=== PATIENT | female | born 1965 | race Caucasian/White ===

== ENCOUNTER → 2019-07-28 00:01 | Outpatient (BNVA) | payer MEDICAID, SELFPAY | PROVIDERS: Family Provider Nurse Practitioner; PCP Nurse Practitioner; Referring Provider Nurse Practitioner; Visit Provider Nurse Practitioner | DX: E11.65 Type 2 diabetes mellitus with hyperglycemia (principal); I10 Essential (primary) hypertension | CPT/HCPCS: 80053; 82044; 83036 ==

== ENCOUNTER 2019-09-08 15:51 | Emergency (ER) | payer MEDICAID, SELFPAY ==
[2019-09-08 16:03] VITALS: BP 120/80; PULSE 61; RESP 15; TEMP 36.4; O2SAT 98; BMI 35.5
== END 2019-09-08 18:24 | disposition left against medical advice (07) ==
LOC: ER 09-21 13:33
PROVIDERS: Emergency Provider Physician Assistant; Family Provider Nurse Practitioner; PCP Nurse Practitioner
DX: Z53.21 Procedure and treatment not carried out due to patient leaving prior to being seen by health care provider (principal)
CPT/HCPCS: 99281

== ENCOUNTER 2020-01-18 20:02 | Emergency (ER) | payer MEDICAID, SELFPAY ==
--- NOTE | 2020-01-18 20:08 | XR_ITS ---
WS: [id number] PORTABLE CHEST HISTORY: chest pain COMPARISON: 03/22/2019 Lungs are clear and well expanded. No pleural effusion or pneumothorax. Cardiac size: Normal. Mediastinum/Aorta: Normal mediastinum. No osseous abnormality seen. XR/XR chest 1V portable [id number] IMPRESSION: Unremarkable portable chest.
[2020-01-18 20:09] VITALS: BP 207/79; PULSE 67; RESP 18; TEMP 36.7; O2SAT 97; BMI 32.8
--- NOTE | 2020-01-18 20:09 | ECG_ITS ---
[facility] ED Test Date: 2020-01-18 Pat Name: Jing Nelson Department: Room: Gender: Female [employer] Administrator: : 1965 Requested By: Mervat Flynn Order Number: [id number] Longoria MD: Frances Bennett M.D. Measurements Intervals [place] Rate: 66 P: 12 WI: 162 QRS: 20 QRSD: 90 T: 31 QT: 377 QTc: 396 Interpretive Statements SINUS RHYTHM Compared to ECG 03/22/2019 14:39:36 No significant changes Electronically Signed On 01-20-2020 17:13:33 CDT by Frances Bennett M.D. [id number] f
[2020-01-18 20:39] VITALS: BP 138/74; PULSE 66; RESP 18; O2SAT 96
--- NOTE | 2020-01-18 20:42 | ED_ITS ---
HPI - Chest Pain General: Chief Complaint: Chest Pain Stated Complaint: CP Time Seen by Provider: 01/18/20 20:08 Source: patient and family Mode of arrival: ambulatory Limitations: no limitations History of Present Illness: HPI narrative: Jing is a very nice 54-year-old female who comes in stating she is having chest pain. She immediately relates that she is under a great deal of anxiety and stress and believes that her symptoms are likely just a panic attack. She describes the pain as sharp in nature in the center of her chest that goes into her left arm. She denies any other associated symptoms such as shortness of breath, diaphoresis, nausea vomiting, lightheadedness or dizziness, syncope or near syncope, exertional worsening of her pain or any other associated symptoms. She is uncertain whether she has had similar symptoms in the past and states that as she knows that there is no known heart problems for her. Associated symptoms: Deny abdominal pain, diaphoresis, dyspnea, fever(s), nausea, palpitations, syncope or vomiting Review of Systems Const: Denies: fever(s), chills, body aches, fatigue, malaise or diaphoresis Eyes: Denies: change in vision, blurry vision, blind spots, photophobia, eye discharge or eye redness ENMT: Denies: throat pain, odynophagia, hoarseness, swelling of lips/tongue, oral sores, ear or mastoid pain, ear discharge, change in hearing or nasal discharge Card: Denies: palpitations, irregular heart rhythm, edema, lightheadedness, syncope, pre-syncope, dyspnea on exertion or orthopnea Resp: Denies: dyspnea, productive cough, non-productive cough, wheezing, hemoptysis or chest congestion GI: Denies: abdominal pain, nausea, vomiting, hematemesis, coffee ground emesis, heartburn, diarrhea, constipation, GI cramping, hematochezia or melena : Denies: flank pain, dysuria, urinary frequency, urinary urgency or hematuria Musc: Denies: neck pain, back pain, extremity pain, extremity swelling, joint pain, joint swelling, joint redness, joint warmth or joint stiffness Skin/Breast: Denies: rash, pruritus, erythema, skin tenderness or jaundice Neuro: Denies: headache(s), numbness in extremities, weakness in extremities, sensory changes, lack of coordination, difficulty walking, dizziness, vertigo, confusion, Slurred speech present or seizure-like activity Jae/Lymph: Denies: easy bruising, easy bleeding, petechiae, purpura or enlarged lymph nodes All/Imm: Denies: urticaria, throat swelling, tongue swelling, facial swelling or acute wheezing PFSH ED PFSH: Medical History Anxiety Chronic back pain Depressed Diabetes Hypertension Surgical History History of cholecystectomy History of hysterectomy Family History Father Randilacy Deanig disease Other CAD (coronary artery disease) Cancer Diabetes Social History Smoking and tobacco status: never smoked Alcohol intake: never History of recent travel: No Physical Exam Const: COMMON NORMALS: no acute distress, patient oriented x3, no limitations, healthy appearing and well nourished GENERAL APPEARANCE: cooperative, well kempt and well developed HENMT: COMMON NORMALS: normocephalic, atraumatic, external ears normal, EAC's normal and Normal external nose present HEAD & SCALP: normal to inspection, normocephalic and atraumatic FACE & SINUS: normal facial exam and face symmetric NOSE: Normal external nose present and Normal nares present EXTERNAL EAR: Yes external ears normal EXTERNAL AUDITORY CANAL: EAC's normal MOUTH: Normal oral and palatal mucosa present, lip normal and tongue normal Eye: COMMON NORMALS: Equal, round and reactive pupils present and conjunctivae normal GENERAL EYE: appearance normal, both eyes and all related structures ALIGNMENT: Yes alignment normal PERIORBITAL: periorbital findings normal EYELID: eyelids normal CONJUNCTIVA: Yes conjunctivae normal SCLERA: sclerae normal PUPIL: Yes Equal, round and reactive pupils present Neck/C-Spine: COMMON NORMALS: full ROM, no lymphadenopathy, supple, no meningeal signs and no JVD GENERAL: Yes normal visual inspection and Yes trachea midline Chest: COMMONS NORMALS: normal inspection of the chest and normal palpation of entire chest wall Resp: COMMON NORMALS: normal respiratory effort, No retractions and No use of accessory muscles EFFORT & INSPECTION: Yes able to speak in complete sentences and Yes symmetric chest movement AUSCULTATION: no crackles, no rales, no rhonchi and no wheezes Cardio: COMMON NORMALS: no JVD, regular rate, regular rhythm, S1 normal heart sound present and S2 normal heart sound present RATE: regular rate RHYTHM: regular rhythm HEART SOUNDS: S1 normal heart sound present, S2 normal heart sound present, no click, no gallops, no murmurs, no rubs and abnormal split S2 GI: COMMON NORMALS: Soft to palpation and No hepatosplenomegaly present PALPATION: Yes Soft to palpation, No Tenderness to palpation present (GI), No Guarding due to palpation present (GI), No Rigid due to palpation, Yes No hepatosplenomegaly present, No Hernia present, No Palpable mass present and No Pulsatile mass present : COMMON NORMALS: Yes no CVA tenderness BLADDER/KIDNEY EXAM: Yes no CVA tenderness EXTERNAL FEMALE EXAM: No Hernia present Back/Pelvis: COMMON NORMALS: no CVA tenderness, thoracic and lumbar spine normal to inspection, no thoracic nor lumbar tenderness and thoraco-lumbar ROM normal Extremity: COMMON NORMALS: normal to inspection, full ROM, capillary refill normal, no joint enlargement, no clubbing, cyanosis or edema and no calf tenderness Neuro: COMMON NORMALS: patient oriented x3, CN's II-XII intact bilaterally, moves all extremities, no focal motor deficits and no sensory deficits noted MENINGEAL SIGNS: Yes no meningeal signs SPEECH: speech normal Psych: COMMON NORMALS: mental status grossly normal, Normal thought process present, cooperative, normal affect, speech normal and activity/motor behavior normal APPEARANCE: Yes well kempt SPEECH: Yes normal speech THOUGHT PROCESS: Normal thought process present Skin: COMMON NORMALS: no rashes or lesions noted, turgor normal, no jaundice, no petechiae and no mottling GENERAL SKIN EXAM: no rashes or lesions noted and turgor normal Course ED course: 2044 -patient is declining an IV at this time. She is informed the nurse and myself that she believes this is just panic attack and would like something for anxiety. After some convincing she does agree to continue with the ongoing work-up. Vital Signs: Vital signs: Vital Signs Temperature 98.1 F 01/18/20 20:09 Pulse Rate 80 01/18/20 21:00 Respiratory Rate 18 01/18/20 21:00 Blood Pressure 155/70 01/18/20 21:00 Pulse Oximetry 99 01/18/20 21:28 MDM - Chest Pain MDM Narrative: Medical decision making narrative: Arrival -Jing is a nice 54-year-old female comes in complaining of sharp chest pain that lasts just a few minutes. She has no other associated symptoms. She believes her symptoms a re related to stress. Patient's heart score is a 3. I will go ahead and proceed with the work-up and look for any sign of heart or aorta problems. Patient would be a negative PERC rule if it was not for her age. I see no sign or symptom of PE at this time. Patient does not describe her pain as ripping or tearing and I do not suspect aortic dissection. Discharge -the patient has not had any further pain here. She again thinks that this is just anxiety. Her EKG is unchanged, her heart score is 3. I have recommended she stay for at least 1 more troponin EKG but she refuses. She wants to go home at this time. She believes her symptoms are all related to her stress and anxiety. I have informed her that without at least another troponin and EKG I cannot tell her that her risk is low but despite this she refuses to stay and wants to be discharged. The patient did have a heart cath although this was 6 years ago. I think it is unlikely that she is developed significant coronary artery disease in this time but despite this I have still recommended she stay but she refuses. Patient clearly has the capacity to make this decision so I will allow her to be discharged per her request. She is been warned that she is also been repeatedly welcome to return should she change her mind. Medical Records: Attestation: I reviewed the patient's medical records. Medical records narrative: Cardiac catheterization from June 2013 revealed completely normal coronary arteries. Lab Data: Labs: Lab Results 01/18/20 01/18/20 01/18/20 Range/Units 20:27 20:27 20:27 WBC 6.0 (4.0-10.0) 10^3/ uL RBC 5.17 (4.1-5.3) 10^6/u L Hgb 14.9 (11.5-15.3) g/dL Hct 45.0 (37.0-47.0) % MCV 87.0 (81-99) fL MCH 28.8 (28.0-34.0) pg MCHC 33.1 (30.0-36.0) g/dL RDW 12.2 (12.1-15.1) % Plt Count 183 (130-400) 10^3/c mm MPV 11.1 H (7.4-10.4) fL Neut % (Auto) 56.8 % Lymph % (Auto) 35.4 % [place] % (Auto) 4.8 % Eos % (Auto) 2.0 % Baso % (Auto) 0.7 % Neut # (Auto) 3.4 (1.8-7.7) 10^3/u L Lymph # (Auto) 2.1 (0.8-4.8) 10^3/u L [place] # (Auto) 0.3 (0.2-0.9) 10^3/u L Eos # (Auto) 0.1 (0.0-0.8) 10^3/u L Baso # (Auto) 0.0 (0.0-0.1) 10^3/u L Nucleated RBC % (a uto) 0 % Nucleated RBCs # 0.0 /100WBC PT 13.30 (10.5-13.3) SECO NDS INR 0.98 (0.8-1.2) Sodium 133 L (136-145) mmol/L Potassium 4.1 (3.5-5.1) mmol/L Chloride 95 L (98-107) mmol/L Carbon Dioxide 27 (22-29) mmol/L Anion Gap 15.1 (5-19) BUN 12 (6-20) mg/dL Creatinine 0.7 (0.5-0.9) mg/dL GFR Calculation 87.2 L (90-130) mL/min Glucose 441 H (65-115) mg/dL Calculated Osmolal ity 291 (285-295) mOsm/k g Calcium 9.6 (8.5-10.5) mg/dL Magnesium 1.9 (1.7-2.3) mg/dL Total Bilirubin 0.3 (0.15-1.2) mg/dL AST 17 (0-32) U/L ALT 15 (0-33) U/L Alkaline Phosphata se 114 H (35-105) IU/L Troponin T Baselin e (0-10) ng/L Total Protein 7.0 (6.6-8.7) g/dL Albumin 3.9 (3.5-5.2) g/dL Globulin 3.1 (1.3-4.6) g/dL Lipase 52 (13-60) U/L /01/30 Range/Units 20:27 WBC (4.0-10.0) 10^3/ uL RBC (4.1-5.3) 10^6/u L Hgb (11.5-15.3) g/dL Hct (37.0-47.0) % MCV (81-99) fL MCH (28.0-34.0) pg MCHC (30.0-36.0) g/dL RDW (12.1-15.1) % Plt Count (130-400) 10^3/c mm MPV (7.4-10.4) fL Neut % (Auto) % Lymph % (Auto) % [place] % (Auto) % Eos % (Auto) % Baso % (Auto) % Neut # (Auto) (1.8-7.7) 10^3/u L Lymph # (Auto) (0.8-4.8) 10^3/u L [place] # (Auto) (0.2-0.9) 10^3/u L Eos # (Auto) (0.0-0.8) 10^3/u L Baso # (Auto) (0.0-0.1) 10^3/u L Nucleated RBC % (a uto) % Nucleated RBCs # /100WBC PT (10.5-13.3) SECO NDS INR (0.8-1.2) Sodium (136-145) mmol/L Potassium (3.5-5.1) mmol/L Chloride (98-107) mmol/L Carbon Dioxide (22-29) mmol/L Anion Gap (5-19) BUN (6-20) mg/dL Creatinine (0.5-0.9) mg/dL GFR Calculation (90-130) mL/min Glucose (65-115) mg/dL Calculated Osmolal ity (285-295) mOsm/k g Calcium (8.5-10.5) mg/dL Magnesium (1.7-2.3) mg/dL Total Bilirubin (0.15-1.2) mg/dL AST (0-32) U/L ALT (0-33) U/L Alkaline Phosphata se (35-105) IU/L Troponin T Baselin e 7 (0-10) ng/L Total Protein (6.6-8.7) g/dL Albumin (3.5-5.2) g/dL Globulin (1.3-4.6) g/dL Lipase (13-60) U/L Imaging Data^: CXR: My impression: No acute cardiopulmonary findings. EKG Data^: EKG 1: Attestation: I personally reviewed and interpreted this EKG as follows: EKG interpretation date: 01/18/20 EKG interpretation time: 20:12 Interpretation: Normal sinus rhythm at 66 beats a minute, T wave inverted in V2, similar to previous. Discharge Plan Discharge Patient Disposition: Home, Self-Care Clinical Impression: Chest pain Qualifiers: Chest pain type: unspecified Qualified Code(s): R07.9 - Chest pain, unspecified Condition: Stable Prescriptions: No Action aspirin [Adult Low Dose Aspirin] 81 mg tablet,delayed release (DR/EC) 81 mg PO DAILY RF: 0 glipizide 2.5 mg tablet extended release 24hr 2.5 mg PO BID Qty: 60 RF: 5 hydroxyzine HCl 25 mg tablet 25 mg PO BID PRN (Reason: anxiety) Qty: 45 RF: 1 ibuprofen 200 mg Tablet 200 mg PO Q6H PRN (Reason: Pain) RF: 0 lisinopril 20 mg tablet 20 mg PO DAILY RF: 0 metformin 750 mg tablet extended release 24 hr 750 mg PO DAILY RF: 0 Discharge Orders: Discharge Order (Routine); Ordered 01/18/20 Ordered By: Mervat Tillman Referrals: Arina Darby FNP [Primary Care Provider] - 1-3 days Discharge Diet: Advance as tolerated Discharge Activity: Increase activity as tolerated Patient Instructions: Chest Pain (ED) Activity Restrictions/Additional Instructions: You're leaving AGAINST MEDICAL ADVICE and are at risk for or severe permanent disability by doing so. You are more than welcome to return at any time for recheck and for further evaluation and care suture change you change your mind. I have advised you to stay for at least another EKG and troponin here in the ER to better evaluate for heart disease but you have declined. If you change your mind, your symptoms return, you develop new or different symptoms, or you simply change your mind you are more than welcome to return to the ER at any time for further evaluation and care. Be certain to follow-up with your primary care physician as soon as possible to determine if they want to perform an outpatient stress test. Discharge Date/Time: 01/18/20 21:39 Coding Level of Care Code ED Bundle Person for Mary Jane Fwiam Exam Comprehensive
[2020-01-18 20:44] LABS: Basophils % 0.7 %; Eosinophils # 0.1 10^3/uL (0.0-0.8); Hemoglobin 14.9 g/dL (11.5-15.3); Lymphocytes # 2.1 10^3/uL (0.8-4.8); Lymphocytes % 35.4 %; Mean Corpuscular HGB Conc 33.1 g/dL (30.0-36.0); Mean Corpuscular Hemoglobin 28.8 pg (28.0-34.0); Mean Platelet Volume 11.1 fL (7.4-10.4); Monocytes # 0.3 10^3/uL (0.2-0.9); Monocytes % 4.8 %; Neutrophils # 3.4 10^3/uL (1.8-7.7); Neutrophils % 56.8 %; Nucleated Red Blood Cells % 0 %; Platelet Count 183 10^3/cmm (130-400); Red Blood Count 5.17 10^6/uL (4.1-5.3); Red Cell Distribution Width 12.2 % (12.1-15.1)
--- NOTE | 2020-01-18 20:45 | PC.NURSE ---
Patient labs obtained but declines IV at this time. She agreed if IV medication needed later she will consider it.
[2020-01-18] MEDS: LORazepam 1 mg Tablet PO (20:59)
[2020-01-18 21:00] VITALS: BP 155/70; PULSE 80; RESP 18; O2SAT 99
[2020-01-18 21:06] LABS: Alanine Aminotransferase 15 U/L (0-33); Albumin Level 3.9 g/dL (3.5-5.2); Alkaline Phosphatase 114 IU/L (35-105); Anion Gap 15.1 (5-19); Aspartate Amino Transferase 17 U/L (0-32); Blood Urea Nitrogen 12 mg/dL (6-20); Calcium 9.6 mg/dL (8.5-10.5); Carbon Dioxide 27 mmol/L (22-29); Chloride 95 mmol/L (98-107); Globulin 3.1 g/dL (1.3-4.6); Glomerular Filtration Rate 87.2 mL/min (90-130); Glucose 441 mg/dL (65-115); Lipase 52 U/L (13-60); Magnesium 1.9 mg/dL (1.7-2.3); Osmolality Calculated 291 mOsm/kg (285-295); Potassium 4.1 mmol/L (3.5-5.1); Sodium 133 mmol/L (136-145); Total Bilirubin 0.3 mg/dL (0.15-1.2)
[2020-01-18 21:08] LABS: Troponin(5th) Baseline 7 ng/L (0-10)
[2020-01-18 21:22] LABS: INR 0.98 (0.8-1.2)
[2020-01-18 21:28] VITALS: O2SAT 99
== END 2020-01-18 21:39 | disposition home or self-care (01) ==
PROVIDERS: Emergency Provider Emergency Medicine; PCP Nurse Practitioner
DX: R07.9 Chest pain, unspecified (principal); Z79.82 Long term (current) use of aspirin; Z79.84 Long term (current) use of oral hypoglycemic drugs; E11.9 Type 2 diabetes mellitus without complications; I10 Essential (primary) hypertension
CPT/HCPCS: 12345; 36415; 71045; 80053; 83690; 83735; 84484; 85025; 85610; 93005; 99283; 99284

== ENCOUNTER → 2020-06-19 10:56 | Outpatient (BNVA) | payer MEDICAID, SELFPAY | PROVIDERS: PCP Nurse Practitioner; Visit Provider Family Medicine Adult Medicine | DX: I10 Essential (primary) hypertension (principal); E11.9 Type 2 diabetes mellitus without complications; E66.9 Obesity, unspecified | CPT/HCPCS: 36416; 82962; 83036; 85025 ==

== ENCOUNTER 2020-10-02 09:57 | Outpatient (CLI) | payer MEDICAID, SELFPAY ==
[2020-10-02 11:17] LABS: Erythrocyte Sedimentation Rate 20 mm/hr (0-15)
== END 2020-10-02 09:58 | disposition home or self-care (01) ==
PROVIDERS: PCP Nurse Practitioner; Visit Provider Physician Assistant Medical
DX: M31.6 Other giant cell arteritis (principal)
CPT/HCPCS: 36415; 85651; 86140

== ENCOUNTER 2021-01-03 10:30 | Outpatient (CLI) | payer MEDICAID, SELFPAY ==
--- NOTE | 2021-01-03 10:32 | MM_ITS ---
WS: [id number] BILATERAL DIGITAL SCREENING MAMMOGRAPHY WITH CAD CLINICAL INFORMATION: SCREENING HISTORY: Screening mammogram. No current complaints. COMPARISON: October 15, 2017 TECHNIQUE: Bilateral CC and MLO views. FINDINGS: Scattered fibroglandular densities bilaterally. No suspicious focal mass, asymmetry, calcifications, or architectural distortion. No evidence of malignancy. MM/[place] [id number] IMPRESSION: BI-RADS: 1-Negative FOLLOW UP: 1 Year Follow-up Recommend return to annual screening mammography.
== END 2021-01-03 10:31 | disposition home or self-care (01) ==
LOC: RADSHAW 10:31
PROVIDERS: PCP Physician Assistant; Visit Provider Physician Assistant
DX: Z12.31 Encounter for screening mammogram for malignant neoplasm of breast (principal)
CPT/HCPCS: 77067

== ENCOUNTER 2021-03-26 07:38 | Outpatient (CLI) | payer MEDICAID, SELFPAY ==
[2021-03-26 07:58] VITALS: BMI 34.1
--- NOTE | 2021-03-26 08:14 | ECG_ITS ---
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
--- NOTE | 2021-03-26 08:14 | NMCV_ITS ---
NM samir perf SPECT r/s* [id number] Jing Nelson Age: 55 Gender: F : 1965 Exam Date: 03/26/2021 09:13 Ordering Phys: Jessica Jennings Technologist: ABRAHAM French Exam Location: [facility] Indications: CHEST PAIN STRESS TEST [facility] IMAGE PROTOCOL Rest/Stress 1 Exercise Day Radiopharmaceutical Dose (mCi) Administration Site Administered by Rest: Tc-99m 10.7 IV ABRAHAM French Sestamibi Stress:Tc-99m 32.9 IV ABRAHAM Chavis Sestamibi Rest: 26-Mar-2021 60 Discovery 630 Stress: 26-Mar-2021 30 Discovery 630 Radiopharmaceutical was injected at 87 % maximum heart rate. Supine position only as patient was unable to lay prone. SPECT RESULTS Technical Quality: Excellent Raw Data Analysis: Normal Image Corrections: No attenuation or motion correction applied Summed Stress Score: 4 Summed Rest Score: 1 Summed Difference Score: 3 PERFUSION FINDINGS Very small sized perfusion abnormality of mild severity of apical inferior and apical lateral garrido with subtle reversibility on supine stress images. FUNCTIONAL RESULTS (calculated via Gated SPECT) Stress Image LV EF (%): 60 Stress EDV (mL):93 TID: 1.09 Stress ESV (mL):37 FUNCTIONAL FINDINGS: The left ventricle is normal in size. Transient Ischemia Dilatation of 1.1. There is normal left ventricular systolic function. The left ventricular ejection fraction is normal with a value of 60%. There is normal left ventricular wall thickening with no regional wall motion abnormality. Normal end diastolic and end systolic volumes. IMPRESSIONS 1. Very small sized perfusion abnormality of mild severity of apical inferior and apical lateral garrido with subtle reversibility. 2. This may represent old myocardial infarction in left anterior descneding artery territory with no significant heather-inferct ischemia or attenuation artifact. 3. Overall left ventricular systolic function is normal without regional wall motion abnormalities. 4. The left ventricular ejection fraction is normal with a value of 60%. 5. No prior similar studies to compare. Frances Bennett MD (Electronically Signed) Final Date: 27 March 2021 22:30 S
[2021-03-26 10:37] VITALS: BP 157/80; PULSE 73
== END 2021-03-26 07:39 | disposition home or self-care (01) ==
PROVIDERS: PCP Physician Assistant; Visit Provider Physician Assistant
DX: R07.9 Chest pain, unspecified (principal)
CPT/HCPCS: 78452; 93017; A9500

== ENCOUNTER 2021-05-30 14:30 | Outpatient (CLI) | payer MEDICAID, SELFPAY ==
--- NOTE | 2021-05-30 15:00 | USCV_ITS ---
Jing Nelson Age: 55 Gender: F : 1965 Exam Date: 05/30/2021 15:02 Ordering Phys: Apurva Mckinney MD ([email or web address]) Technologist: MATY Exam Location: [facility] [place] Indication: Dyspnea BP: 128 / 68 HR: 73 Rhythm: Sinus Technical Quality: Fair MEASUREMENTS (Male / Female) Normal Values 2D ECHO LV Diastolic Diameter PLAX 4.3 cm 4.2 - 5.9 / 3.9 - 5.3 cm LV Systolic Diameter PLAX 2.7 cm IVS Diastolic Thickness 1.3 cm 0.6 - 1.0 / 0.6 - 0.9 cm IVS Systolic Thickness 1.8 cm LVPW Diastolic Thickness 1.6 cm 0.6 - 1.0 / 0.6 - 0.9 cm LVPW Systolic Thickness 1.7 cm RV Chamber Size 2.8 cm LVOT Diameter 2.0 cm LV Ejection Fraction 2D Teich 66.8 % LV Ejection Fraction MOD 2C 71.9 % LV Ejection Fraction 2C AL 71.1 % LA Diameter 3.0 cm LA Width 3.7 cm LA Height 4.0 cm RA Width 3.5 cm RA Height 4.1 cm Aorta at Sinotubular Diameter 2.6 cm DOPPLER AV Peak Velocity 123.0 cm/s LVOT Peak Velocity 91.0 cm/s AV Area Cont Eq vti 2.0 cm squared AV Area Cont Eq pk 2.4 cm squared MV Area PHT 5.0 cm squared Mitral E to A Ratio 1.0 MV E' Velocity 42.0 cm/s Mitral E to MV E' Ratio 9.9 Mitral E to LV E' Lateral Ratio 9.8 Mitral E to LV E' Septal Ratio 10.1 TR Peak Velocity 214.0 cm/s TR Peak Gradient 18.3 mmHg TV Peak E Velocity 53.0 cm/s PV Peak Velocity 90.0 cm/s RV Acceleration Time 0.1 s RV Ejection Time 0.3 s RV AcT/ET 0.4 FINDINGS Left Ventricle Normal left ventricular size and systolic function, EF 66 %. Mild left ventricular hypertrophy. No regional wall motion abnormalities. Right Ventricle The right ventricle is normal in size and function. Right Atrium The right atrium is normal in size. Left Atrium The left atrium is normal in size. Mitral Valve Mild mitral annular calcification. Aortic Valve No gross abnormalities noted Tricuspid Valve No gross abnormalities noted Pulmonic Valve No gross abnormalities noted Pericardium Normal pericardium without effusion. Aorta Normal ascending aorta dimension. CONCLUSIONS Normal left ventricular size and systolic function, EF 66 %. Mild left ventricular hypertrophy. No regional wall motion abnormalities. Mild mitral annular calcification. Normal cardiac chamber sizes. No significant valvular abnormalities There is no pericardial effusion. Dr Apurva Mckinney MD FACC (Electronically Signed) Final Date: 30 May 2021 22:08 S
== END 2021-05-30 14:31 | disposition home or self-care (01) ==
LOC: US 14:32
PROVIDERS: PCP Physician Assistant; Visit Provider Internal Medicine Cardiovascular Disease
DX: R06.00 Dyspnea, unspecified (principal); R94.39 Abnormal result of other cardiovascular function study
CPT/HCPCS: 93306

== ENCOUNTER 2021-06-17 17:22 | Emergency (ER) | payer MEDICAID, SELFPAY ==
[2021-06-17 17:38] VITALS: BP 165/101; PULSE 71; RESP 16; TEMP 36.8; O2SAT 98
--- NOTE | 2021-06-17 17:47 | W.ED.COVID ---
HPI - COVID General: Chief Complaint: COVID symptoms Stated Complaint: SORE THROAT, NAUSEA Time Seen by Provider: 06/17/21 17:47 Triage information: No fever, cough or shortness of breath. No known COVID + exposure last 14 days History of Present Illness: HPI Narrative: 56-year-old female comes in today with 3-day history of sore throat. Patient denies any cough or other symptoms. Patient appears mildly unwell but not toxic. Patient is alert and oriented. COVID 19 common symptoms: positive throat pain COVID Results: SARS-CoV-2 Antigen (Rapid) Negative (Negative) 06/17/21 18:14 06/17/21 Nasal/Oral Coronavirus 2019 PCR Pending 06/17/21 18:14 06/17/21 Review of Systems General: Reports: 10 or more systems reviewed and unremarkable except in HPI and below ENMT: Reports: throat pain PFSH ED PFSH: Medical History Anxiety and depression Chronic back pain Depressed Hypertension Obesity (BMI 35.0-39.9 without comorbidity) Uncontrolled diabetes mellitus Surgical History History of cholecystectomy History of hysterectomy Family History Father Cancer Dementia Lung disease Mother CAD (coronary artery disease) Diabetes Stroke Family/Other Randi Gehrig disease Brother Seizures Stroke Denies family history of Clotting disorder Chronic kidney disease (CKD) Suicide Anesthesia complication Bleeding disorder Social History Smoking and tobacco status: never smoked Alcohol intake: never History of recent travel: No Physical Exam Const: COMMON NORMALS: no acute distress and patient oriented x3 GENERAL APPEARANCE: cooperative HENMT: COMMON NORMALS: normocephalic, TM's normal bilaterally and Normal external nose present HEAD & SCALP: normal to inspection and normocephalic NOSE: Normal external nose present TYMPANIC MEMBRANE: TM's normal bilaterally MOUTH: Normal oral and palatal mucosa present THROAT: posterior oropharynx abnormal erythema Eye: GENERAL EYE: appearance normal, both eyes and all related structures Neck/C-Spine: COMMON NORMALS: full ROM Lymph: LYMPHATIC: no lymphadenopathy noted Chest: COMMONS NORMALS: normal inspection of the chest Resp: COMMON NORMALS: normal respiratory effort EFFORT & INSPECTION: Yes able to speak in complete sentences Cardio: COMMON NORMALS: regular rate and regular rhythm RATE: regular rate RHYTHM: regular rhythm GI: COMMON NORMALS: non-tender Back/Pelvis: COMMON NORMALS: thoracic and lumbar spine normal to inspection Extremity: COMMON NORMALS: normal to inspection Neuro: COMMON NORMALS: patient oriented x3 and moves all extremities Psych: COMMON NORMALS: mental status grossly normal and cooperative Skin: COMMON NORMALS: no rashes or lesions noted GENERAL SKIN EXAM: no rashes or lesions noted Course Vital Signs: Vital signs: Vital Signs Temperature 98.2 F 06/17/21 18:25 Pulse Rate 71 06/17/21 18:25 Respiratory Rate 16 06/17/21 18:25 Blood Pressure 165/101 06/17/21 18:25 Pulse Oximetry 98 06/17/21 18:25 MDM - COVID MDM Narrative: Medical decision making narrative: 56-year-old female comes in today with complaints of sore throat. On exam posterior pharynx is slightly erythematous. Bilateral there is open. Patient has some mild cervical lymphadenopathy anteriorly. Vital signs are normal. Differential diagnosis includes but not limited to Strep pharyngitis, viral syndrome, COVID-19, influenza. Strep, COVID-19, and influenza test were negative. Throat culture was sent out. Patient was given 10 mg dexamethasone p.o. for throat discomfort. Patient was encouraged to use acetaminophen and ibuprofen as needed for pain and discomfort. Encourage plenty of fluids. Recommend follow-up with primary care in 3 to 5 days for recheck. Return to the ER for new concerns. Lab Data: Labs: Lab Results 06/17/21 06/17/21 06/17/21 18:14 18:14 18:14 Influenza Type A A g Negative (Negative) Influenza Type B A g Negative (Negative) SARS-CoV-2 Ag (Rap id) Negative (Negative) Group A Strep Rapi d Negative (Negative) COVID Results: SARS-CoV-2 Antigen (Rapid) Negative (Negative) 06/17/21 18:14 06/17/21 Nasal/Oral Coronavirus 2019 PCR Pending 06/17/21 18:14 06/17/21 Discharge Plan Discharge Patient Disposition: Home Clinical Impression: Pharyngitis Qualifiers: Pharyngitis/tonsillitis etiology: unspecified etiology Qualified Code(s): J02.9 - Acute pharyngitis, unspecified Condition: Stable Prescriptions: No Action aspirin [Adult Low Dose Aspirin] 81 mg tablet,delayed release (DR/EC) 81 mg PO DAILY Qty: 100 RF: 3 hydroxyzine HCl 25 mg tablet 25 mg PO BID PRN (Reason: anxiety or panic attacks as needed) Qty: 45 RF: 1 lisinopril 20 mg tablet 20 mg PO DAILY Qty: 30 RF: 5 nitroglycerin [Nitrostat] 0.4 mg tablet, sublingual 0.4 mg sublingual Q5M PRNRF: 0 Jardiance 10 mg tablet 10 mg PO DAILY RF: 0 sertraline 50 mg tablet 100 mg PO DAILY RF: 0 metformin 500 mg tablet extended release 24 hr 1,000 mg PO BID RF: 0 ibuprofen 200 mg Tablet 200 mg PO Q6H PRN (Reason: Pain) RF: 0 Discharge Orders: Discharge ED (Routine); Ordered 06/17/21 Ordered By: Tobi Khalil Referrals: Jessica Jennings PA [Primary Care Provider] - Discharge Diet: Usual diet Discharge Activity: Increase activity as tolerated Patient Instructions: Pharyngitis (ED), Opioid Safety Activity Restrictions/Additional Instructions: Home and rest. Drink plenty of water. Use acetaminophen and ibuprofen for pain. Follow-up with primary care in 3 days as needed. Return to the ER for worsening symptoms or new concerns. We have done a culture of your throat if it grows out something that requires antibiotic we will contact you and call in a prescription. Coding Level of Care Code ED Airborne And Air Delivery Specialist for Mary Jane Collazo
[2021-06-17 18:25] VITALS: BP 165/101; PULSE 71; RESP 16; TEMP 36.8; O2SAT 97; O2SAT 98
[2021-06-17 18:35] LABS: Rapid Strep A Test Negative (Negative)
[2021-06-17 18:45] LABS: SARS Covid-2 Antigen Negative (Negative)
[2021-06-17 18:46] LABS: Influenza A by IFA Negative (Negative); Influenza B by IFA Negative (Negative)
[2021-06-17] MEDS: dexamethasone 4 mg Tablet 10 MG PO (19:28)
[2021-06-17 19:36] VITALS: BP 134/80; PULSE 78; RESP 18; O2SAT 98
[2021-06-18 14:30] LABS: Coronavirus Test Green County Not Detected
--- NOTE | 2021-06-18 17:52 | PC.NURSE ---
Pt informed of Negative COVID
== END 2021-06-17 19:34 | disposition home or self-care (01) ==
PROVIDERS: Emergency Medicine; Emergency Provider Nurse Practitioner Family; PCP Physician Assistant
DX: J02.9 Acute pharyngitis, unspecified (principal); Z79.82 Long term (current) use of aspirin; Z79.84 Long term (current) use of oral hypoglycemic drugs; I10 Essential (primary) hypertension; E11.9 Type 2 diabetes mellitus without complications; Z20.822 Contact with and (suspected) exposure to COVID-19
CPT/HCPCS: 87081; 87426; 87635; 87804; 87880; 99283; J8540

== ENCOUNTER → 2021-10-22 13:19 | Outpatient (BNVA) | payer MEDICAID, SELFPAY | PROVIDERS: PCP Physician Assistant; Visit Provider Internal Medicine Cardiovascular Disease | DX: R94.39 Abnormal result of other cardiovascular function study (principal); E11.65 Type 2 diabetes mellitus with hyperglycemia; E66.9 Obesity, unspecified; Z68.35 Body mass index [BMI] 35.0-35.9, adult; I10 Essential (primary) hypertension; E78.5 Hyperlipidemia, unspecified; R07.89 Other chest pain; Z79.84 Long term (current) use of oral hypoglycemic drugs; Z79.82 Long term (current) use of aspirin | CPT/HCPCS: 80048; 85025; 85610; 86850; 86900; 99215 ==

== ENCOUNTER 2021-11-08 06:50 | Outpatient (CLI) | payer MEDICAID, SELFPAY ==
[2021-11-08] VITALS (13 sets, daily range): BP systolic 137–179; BP diastolic 68–118; PULSE 62–82; RESP 12–21; TEMP 36.4; O2SAT 95–100; BMI 34.1
[2021-11-08] MEDS: diphenhydrAMINE 50 mg Capsule PO (07:30)
--- NOTE | 2021-11-08 07:55 | XACV_ITS ---
Ht: 170 cm Wt: 99 kg BSA: 2.20 m2 Gender: Female : 1965 Any Known Allergies: Other Exam Priority: Routine Procedure(s): Procedure Description: Diagnostic procedure Procedure Description: Left Heart Catheterization Procedure Description: Left ventriculography Procedure Description: Coronary Angiography Diagnostic Cath Status: Elective Diagnostic Findings * This patient has persistent chest pain with multiple other problems primarily emotional. Previous angiography was negative. Procedure done from the right radial artery. Multiple catheters used to try to intubate the left main which comes off high above the coronary cusp. After 5 catheters the left 1 Amplatz finally was positioned just outside the left main and enough contrast material was used to illuminate the left coronary system. * Coronary angiography reveals right coronary artery dominance. The right coronary artery is normal. The circumflex is normal as is the left main. There are 3 marginal branches which are normal. The LAD gives off 2 small diagonal branches and is normal. Conclusions 1. Normal coronary arteries and normal coronary arteries with normal left ventricular function. Interventional RX Recommendation: none Diagnostic RX Recommendation: none Anticoagulation: Heparin Ventriculography Ejection Fraction: 55.0 % Pressures Phase:Rest AO : 215 / 96 ( 141 ) @ 9:13:00 AM 221 / 98 ( 138 ) @ 9:29:00 AM 214 / 85 ( 143 ) @ 9:37:00 AM 213 / 85 ( 143 ) @ 9:37:00 AM LV : 245 / 0 / 23 @ 9:36:00 AM 221 / -9 / 22 @ 9:37:00 AM 218 / -11 / 20 @ 9:37:00 AM Valves Phase:DefaultPhase AV : 4.0 @ 8:45:04 AM AV Mean Gradient: 8.0 @ 8:45:04 AM Clinical Evaluation EBL: 5mL-10mL Procedural Details Pre-Procedure Time Out. Identified patient by full name and date of as verbalized by the patient/guarantor. Does the consent match the physician's order: Yes. Accurate & Complete Informed Consent: Yes. Inpatient/Outpatient History & Physical on Chart: Yes. If H&P is completed, is and addenduem needed: No. Visualize and Verify Site with Patient/Guarantor: N/A. Relevant Radiology Images available: Yes. Pre-op teaching completed and patient verbalized understanding. The risks, benefits, and alternatives of sedation and/or procedure were discussed by physician. The patient agrees to continue. Procedure started. [facility] Clinical Fraility Score: 3: Managing Well. 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 Chest Pain Symptom Assessment: Typical Angina Symptoms. Cardiovascular Instability: No. Correct patient, site and procedure confirmed by cath team. PERRLA. Strong, equal hand director of housing bilaterally. Lungs clear x 5 lobes. IV Site on Arrival: 20 gauge in the left anticubital. IV Fluids: 0.9% NaCl at KVO. 0 mL infused prior to lab assistant. Pre Procedural Pulses: bilateral dorsalis pedis was Doppled. Pre Procedural Pulses: bilateral posterior tibial was Doppled. Pre Procedural Pulses: bilateral radial was 3+. Oxygen started at 2liters/min via nasal canula. right groin was prepped with chloroprep then draped in the usual sterile fashion. right radial was prepped with chloroprep then draped in the usual sterile fashion. Baseline sample Acquired. HR: 45 BPM. Physician notified. Equipment: 6F - Radial. Cardiac Cath Pack. ACIST Manifold Kit Model BT 2000. Heparinized Saline (2 units/mL), 1000 mL bag. Physician arrived. Physician scrubbed in. Immediate Pre-Procedure Time Out. Correct Patient: Yes; Correct Procedure: Yes; Correct Site: Yes; Correct Patient Position: Yes; Correct Supplies: Yes; Dried Flammable Prep: Yes; Blood Products Available: N/A. Lidocaine 1% infiltrated to the right radial. Arterial access obtained. A 6 luxembourger TIG catheter in over wire. Catheter out. A 5 luxembourger TIG catheter in over wire. Multiple views taken of right coronary artery. Catheter redirected to the LCA. Catheter out. A 5 luxembourger JL3.5 catheter in over wire. Catheter out. A 5 luxembourger JL4 catheter in over wire. Catheter out. A 5 luxembourger Dennis catheter in over wire. Catheter out. A 5 luxembourger AL1 catheter in over wire. Multiple views taken of left coronary artery. Catheter out. A 5 luxembourger Angled Pig catheter in over wire. EDP Sample taken: LV 245/0,23; HR: 77 BPM; SpO2: 100%. LV gram performed in SHUKLA @ 10 mL/second for a total of 30 mL. EDP Sample taken: LV 221/-10,22; HR: 81 BPM; SpO2: 100%. Pullback taken: LV 218/-12,20; AO 214/85(143); Mean: 8mmHg, Peak to Peak: 4mmHg, SEP: 28sec/min; HR: 84 BPM; SpO2: 100%. Catheter out. Dr Barclay scrubbed out. TR band placed. Hemostasis obtained. Post Procedure: Pulses reassessed and unchanged. PERRLA. Strong, equal hand director of housing bilaterally. No VTE prophylaxis required. Medication's Wasted: Lidocaine 1% = 6 mL. Medication's Wasted: Heparin = 1000 Units. Medication's Wasted: Nitro = 49.8 mg. Total IV fluids: 52 mL. Post-op diagnosis: Normal Coronaries. Complications: none. Estimated blood loss: 5mL-10mL. Responsiveness - Normal response to verbal stimuli; alert and oriented, PERRLA. Airway - Unaffected, no intervention required; spontaneous ventilation. Nausea/Vomiting: No. Circulation: W/N/L, pulses unchanged. Procedure completed. Patient transferred by wheelchair to CPRU. Vital chart was stopped. Access Site Site: Right Radial artery Sheath Size: 6 Fr Hemostasis Success: Unsuccessful Procedure Medications Start: 8:05 AM Stop: 8:05 AM Medication: Versed Amount: 1 mg Start: 8:05 AM Stop: 8:05 AM Medication: Fentanyl Amount: 50 mcg Route: I.V. Start: 8:09 AM Stop: 8:09 AM Medication: Nitrogylcerin Amount: 200 mcg Route: I.A. Start: 8:12 AM Stop: 8:12 AM Medication: Heparin Amount: 5000 units Route: I.V. Start: 8:17 AM Stop: 8:17 AM Medication: Versed Amount: 1 mg Route: I.V. Start: 8:27 AM Stop: 8:27 AM Medication: Fentanyl Amount: 50 mcg Route: I.V. Start: 8:32 AM Stop: 8:32 AM Medication: Hydralazine Amount: mg Route: I.V. Start: 8:36 AM Stop: 8:36 AM Medication: Hydralazine Amount: 10 mg Route: I.V. I, the attending physician, have reviewed and verified all procedure medications. Yes, all medications given per verbal order History/Risk Factors Hypertension: Yes Dyslipidemia: Yes Peripheral Arterial Disease (PAD): No Myocardial Infarction (MS): No Obesity: Yes Renal Disease: No Tobacco Use: Never Prior Interventions PCI: No CABG: No Valve Surgery: No Report Signatures Finalized by Dr. Leland Barclay MD on 11/08/2021 08:55 AM
--- NOTE | 2021-11-08 08:59 | PC.NURSE ---
received pt from asset availability leader post diagnostic [facility]. pt complains of no pain. tr band on right wrist with distal pulses palpable. pt alert and oriented x3. pt educated on restrictions of right arm and will be educated throughout recovery. spouse at bedside also educated. both stated their understanding. pt to be dc after 3 hrs if recovery is unremarkable. pt to be evaluated per protocol.
[2021-11-08] MEDS: ondansetron 2 mg/ML SDV 2 mL 4 MG IVP (09:45)
--- NOTE | 2021-12-14 12:07 | PM.MISC ---
Miscellaneous Note Note: I was asked to perform a coronary angiogram on this patient, who is a patient of Dr. Hernandez. He saw her in the office on October 22 and scheduled the angiogram. His presents out of town was required unexpectedly and so he asked me to perform the angiogram. She has chest pain and has a positive stress test. Her symptoms and physical exam have not changed since the examination was done on October 22.
== END 2021-11-08 11:52 | disposition home or self-care (01) ==
PROVIDERS: Internal Medicine Cardiovascular Disease; PCP Physician Assistant; Visit Provider Internal Medicine Cardiovascular Disease
DX: R07.89 Other chest pain (principal); I10 Essential (primary) hypertension; E78.5 Hyperlipidemia, unspecified; E66.9 Obesity, unspecified; Z68.34 Body mass index [BMI] 34.0-34.9, adult; F41.9 Anxiety disorder, unspecified; F32.9 Major depressive disorder, single episode, unspecified; E11.9 Type 2 diabetes mellitus without complications
CPT/HCPCS: 36415; 93452; 93458; 96360; 96361; 99152; C1769; C1887; C1894; J0360; J1644; J2250; J2405; J3010; J3490; J7030; Q0163; Q9967

== ENCOUNTER → 2021-11-15 14:36 | Outpatient (BNVA) | payer MEDICAID, SELFPAY | PROVIDERS: PCP Physician Assistant; Visit Provider Nurse Practitioner Family | DX: Z09 Encounter for follow-up examination after completed treatment for conditions other than malignant neoplasm (principal); I10 Essential (primary) hypertension | CPT/HCPCS: 80048; 99214 ==

== ENCOUNTER → 2022-02-07 12:46 | Outpatient (BNVA) | payer MEDICAID, SELFPAY | PROVIDERS: PCP Physician Assistant; Visit Provider Internal Medicine Cardiovascular Disease | DX: R07.89 Other chest pain (principal); E78.5 Hyperlipidemia, unspecified; E11.65 Type 2 diabetes mellitus with hyperglycemia; Z79.84 Long term (current) use of oral hypoglycemic drugs; E66.9 Obesity, unspecified; Z68.36 Body mass index [BMI] 36.0-36.9, adult; F41.9 Anxiety disorder, unspecified; F32.9 Major depressive disorder, single episode, unspecified | CPT/HCPCS: 99213; 99214 ==

== ENCOUNTER 2022-07-31 10:14 | Emergency (ER) | payer MEDICAID, SELFPAY ==
--- NOTE | 2022-07-31 10:20 | ECG_ITS ---
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 Measurements Intervals Bronson Rate: 60 P: 53 NC: 157 QRS: 69 QRSD: 104 T: 31 QT: 411 QTc: 411 Interpretive Statements SINUS RHYTHM WITH OCCASIONAL SUPRAVENTRICULAR PREMATURE COMPLEXES Compared to ECG 01/18/2020 20:12:46 No significant changes Electronically Signed On 08-01-2022 10:06:03 CLINICAL RESEARCH ASSOCIATE by Frances Bennett M.D. [id number]
[2022-07-31 10:22] VITALS: BP 153/77; PULSE 60; RESP 18; TEMP 36.4; O2SAT 97; BMI 32.8
--- NOTE | 2022-07-31 10:33 | XRR_ITS ---
PROCEDURE INFORMATION: Exam: XR Chest Exam date and time: 07/31/2022 10:39 AM Age: 57 years old Clinical indication: Pain; Angina pectoris; Additional info: Cp TECHNIQUE: Imaging protocol: Radiologic exam of the chest. Views: 1 view. COMPARISON: CR XR chest 1V portable [id number] 01/18/2020 8:08 PM FINDINGS: Lungs: The lung parenchyma is clear. Pleural spaces: No pneumothorax. No pleural effusion. Heart/Mediastinum: The cardiomediastinal silhouette is within normal limits. Bones/joints: Unremarkable. XR/XR chest 1V portable [id number] IMPRESSION: No acute cardiopulmonary abnormality.
[2022-07-31 11:00] LABS: Basophils % 0.7 %; Eosinophils # 0.1 10^3/uL (0.0-0.8); Eosinophils % 1.8 %; Hematocrit 44.9 % (37.0-47.0); Hemoglobin 15.1 g/dL (11.5-15.3); Lymphocytes # 1.8 10^3/uL (0.8-4.8); Lymphocytes % 29.5 %; Mean Corpuscular HGB Conc 33.6 g/dL (30.0-36.0); Mean Corpuscular Hemoglobin 29.2 pg (28.0-34.0); Mean Corpuscular Volume 86.7 fl (81-99); Monocytes # 0.3 10^3/uL (0.2-0.9); Neutrophils # 3.74 10^3/uL (1.8-7.7); Neutrophils % 62.7 %; Nucleated Red Blood Cells % 0 %; Platelet Count 159 10^3/cmm (130-400); Red Blood Count 5.18 10^6/uL (4.1-5.3); Red Cell Distribution Width 12.3 % (12.1-15.1)
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
[2022-07-31 11:29] LABS: Troponin(5th) Baseline 9 ng/L (0-10)
[2022-07-31] MEDS: aspirin 81 mg Chew Tablet 324 MG PO (11:38)
[2022-07-31] MEDS: lisinopril 20 mg Tablet 40 MG PO (11:38)
[2022-07-31 11:39] LABS: Alanine Aminotransferase 14 U/L (0-33); Albumin Level 3.6 g/dL (3.5-5.2); Alkaline Phosphatase 118 U/L (35-105); Anion Gap 13.9 (5-19); Aspartate Amino Transferase 17 U/L (0-32); Blood Urea Nitrogen 11 mg/dL (6-20); Calcium 8.7 mg/dL (8.5-10.5); Carbon Dioxide 27 mmol/L (22-29); Chloride 100 mmol/L (98-107); Creatinine Clr Calc Pharmacy 122.5832; Globulin 3.2 g/dL (1.3-4.6); Glucose 249 mg/dL (65-115); Lipase 41 U/L (13-60); NT Pro B Type Natriuretic Pept 273 pg/mL (0-125); Osmolality Calculated 292 mOsm/kg (285-295); Potassium 3.9 mmol/L (3.5-5.1); Sodium 137 mmol/L (136-145); Total Bilirubin 0.4 mg/dL (0.15-1.2); Total Protein 6.8 g/dL (6.6-8.7)
--- NOTE | 2022-07-31 11:47 | PC.PHAR ---
pt states she takes care of her own medications-pt states her levemir flextouch 20 units hs filled 03/21/22 75d/s and victoza 1.2mg daily filled 02/2022 and metformin er 500mg take 1000mg bid filled 02/2022 30d/s was dced-pt state she is suppose to be taking jardiance 10mg daily last filled 02/2022 pt states she hasnt taken for 4 months-pt states she takes buspar 5mg bid prn filled 02/2022 30d/s,hydroxyzine hcl 25mg tid prn filled 02/2022 30d/s and paxil 40mg daily prn-pt states she doesnt always remember to take her meds pt states she hasnt taken her lisinopril 20mg daily for 2-3 weeks last filled 02/2022 30d/s-and aspirin 81mg daily for about 2 weeks-notes are made in the pharmacy comments
--- NOTE | 2022-07-31 12:33 | ECG_ITS ---
[facility] Test Date: 2022-07-31 Pat Name: Jing Nelson Department: Room: Gender: Female Health Professional: : 1965 Requested By: Jay Baumann Order Number: [id number] Longoria MD: Frances Bennett M.D. Measurements Intervals [place] Rate: 56 P: 55 MI: 172 QRS: 58 QRSD: 106 T: 23 QT: 425 QTc: 413 Interpretive Statements SINUS BRADYCARDIA MINIMAL ST DEPRESSION [0.025+ mV ST DEPRESSION] Compared to ECG 07/31/2022 10:20:53 ST (T wave) deviation now present Sinus rhythm no longer present Electronically Signed On 08-01-2022 10:11:56 MANAGER OF ORGANIZATIONAL DEVELOPMENT by Frances Bennett M.D. [id number]
[2022-07-31] MEDS: LORazepam 2 mg/mL INJ 1 mL 1 MG IVP (12:42)
[2022-07-31 13:45] VITALS: BP 201/97; PULSE 73; RESP 17; O2SAT 98
== END 2022-07-31 13:48 | disposition home or self-care (01) ==
PROVIDERS: Emergency Medicine; Emergency Provider Emergency Medicine; PCP Internal Medicine Cardiovascular Disease
DX: R07.9 Chest pain, unspecified (principal); I10 Essential (primary) hypertension; F41.9 Anxiety disorder, unspecified; Z79.82 Long term (current) use of aspirin; E78.5 Hyperlipidemia, unspecified; E11.9 Type 2 diabetes mellitus without complications
CPT/HCPCS: 71045; 80053; 83690; 83880; 84484; 85025; 93005; 96374; 99285; J2060

== ENCOUNTER → 2022-08-08 09:12 | Outpatient (BNVA) | payer MEDICAID, SELFPAY | PROVIDERS: PCP Physician Assistant; Visit Provider Nurse Practitioner Family | DX: I10 Essential (primary) hypertension (principal); R07.89 Other chest pain | CPT/HCPCS: 99214 ==

== ENCOUNTER 2023-02-03 19:22 | Emergency (ER) | payer MEDICAID, SELFPAY ==
[2023-02-03 19:55] VITALS: BP 185/78; PULSE 74; RESP 16; TEMP 36.7; O2SAT 98; BMI 33.6
--- NOTE | 2023-02-03 20:55 | CTR_ITS ---
PROCEDURE INFORMATION: Exam: CT Head Without Contrast Exam date and time: 02/03/2023 9:09 PM Age: 57 years old Clinical indication: Dizziness; Additional info: Dizziness, new dizziness, altered mental TECHNIQUE: Imaging protocol: Computed tomography of the head without contrast. Sagittal and coronal reformatted images were created and reviewed. Radiation optimization: All CT scans at this facility use at least one of these dose optimization techniques: automated exposure control; mA and/or kV adjustment per patient size (includes targeted exams where dose is matched to clinical indication); or iterative reconstruction. REPORTING DATA: Count of CT and Cardiac NM exams in prior 12 months: This patient has received 0 known CTs and 0 known cardiac nuclear medicine studies in the 12 months prior to the current study. COMPARISON: CT head wo con* [id number] 04/16/2019 9:16 AM RADIATION DOSE METRICS: Total DLP (mGy-cm): 1135.64 FINDINGS: Brain: Stable calcified meningioma in the right middle cranial fossa measuring 2.8 x 0.9 x 0.5 cm. No acute intracranial hemorrhage. No acute infarct. Kyle-white matter differentiation is preserved. No cerebral edema. No extra-axial fluid collections. No midline shift. Cerebral ventricles: No hydrocephalus. Paranasal sinuses: Visualized paranasal sinuses are clear. Mastoid air cells: Right mastoid air cells are clear. Stable small amount of fluid in the left mastoid air cells. Orbital cavities: Globes and lenses, extraocular muscles, and optic nerves are intact bilaterally. No acute intraorbital abnormality. Bones/joints: No acute fracture. Soft tissues: No acute abnormality of the extracranial soft tissues. CT/CT head wo con* [id number] IMPRESSION: 1. No acute abnormality of the brain. 2. Stable small amount of fluid in the left mastoid air cells. 3. Incidental/nonacute findings are listed in the report.
--- NOTE | 2023-02-03 20:55 | ECG_ITS ---
[facility] Test Date: 2023-02-03 Pat Name: Jing Nelson Department: Room: Gender: Female [employer] Chair: : 1965 Requested By: Kelly Smyth Order Number: [id number] Von MD: Zbigniew Thacker M.D. Measurements Intervals [place] Rate: 59 P: 54 NH: 164 QRS: 51 QRSD: 107 T: 37 QT: 403 QTc: 402 Interpretive Statements SINUS BRADYCARDIA WITH SINUS ARRHYTHMIA POSSIBLE ANTERIOR MYOCARDIAL INFARCTION , PROBABLY OLD [30 ms Q WAVE IN V3/V4, OR R < 0.2 mV IN V4] Compared to ECG 07/31/2022 12:45:23 Myocardial infarct finding now present ST (T wave) deviation no longer present Electronically Signed On 02-04-2023 17:36:19 CDT by Zbigniew Thacker M.D. [email or web address]
[2023-02-03 21:14] LABS: Basophils # 0.1 10^3/uL (0.0-0.1); Basophils % 1.1 %; Eosinophils # 0.1 10^3/uL (0.0-0.8); Eosinophils % 1.9 %; Hematocrit 41.8 % (37.0-47.0); Lymphocytes % 36.1 %; Mean Corpuscular HGB Conc 33.5 g/dL (30.0-36.0); Mean Corpuscular Hemoglobin 29.4 pg (28.0-34.0); Mean Corpuscular Volume 87.6 fl (81-99); Mean Platelet Volume 11.5 fL (7.4-10.4); Monocytes # 0.2 10^3/uL (0.2-0.9); Monocytes % 4.2 %; Neutrophils # 3.19 10^3/uL (1.8-7.7); Neutrophils % 56.5 %; Nucleated Red Blood Cells % 0 %; Platelet Count 147 10^3/cmm (130-400); Red Blood Count 4.77 10^6/uL (4.1-5.3); White Blood Count 5.7 10^3/uL (4.0-10.0)
[2023-02-03 21:18] LABS: Erythrocyte Sedimentation Rate 8 mm/hr (0-15)
[2023-02-03 21:18] LABS: Add Urine Culture? No; Add Urine Microscopic? YES; Bacteria Urine TRACE /hpf; Bilirubin Urine Neg (Negative); Blood Urine 3+ (Negative); Glucose Urine UA 4+ (Normal); Ketones Urine Negative (Negative); Leukocyte Esterase Urine Negative (Negative); Nitrate Urine Negative (Negative); Protein Urine Neg (Negative); Urine Appearance Clear (CLEAR); Urine Color Yellow (Yellow); Urobilinogen Urine Neg (Negative); pH Urine 5 (5-7)
[2023-02-03 21:32] LABS: Troponin(5th) Baseline 9 ng/L (0-10)
[2023-02-03 21:49] VITALS: BP 221/98; PULSE 60; RESP 18; O2SAT 99
[2023-02-03 21:54] LABS: Alanine Aminotransferase 11 U/L (0-33); Albumin Level 3.6 g/dL (3.5-5.2); Alkaline Phosphatase 101 U/L (35-105); Anion Gap 13.2 (5-19); Aspartate Amino Transferase 17 U/L (0-32); Blood Urea Nitrogen 14 mg/dL (6-20); C Reactive Protein 13.7 mg/L (0.0-4.9); Calcium 8.5 mg/dL (8.5-10.5); Carbon Dioxide 26 mmol/L (22-29); Chloride 93 mmol/L (98-107); Globulin 2.6 g/dL (1.3-4.6); Glomerular Filtration Rate 73.9 mL/min (90-130); Glucose 483 mg/dL (65-115); Osmolality Calculated 288 mOsm/kg (285-295); Potassium 4.2 mmol/L (3.5-5.1); Sodium 128 mmol/L (136-145); Thyroid Stimulating Hormone 2.56 uIU/mL (0.27-4.20); Total Bilirubin 0.2 mg/dL (0.15-1.2); Total Protein 6.2 g/dL (6.6-8.7)
[2023-02-03 22:11] LABS: Amphetamines Screen Urine Negative (Negative); Barbiturates Screen Urine Negative (Negative); Benzodiazepines Screen Urine Negative (Negative); Cocaine Screen Urine Negative (Negative); Opiate Screen Urine Negative (Negative); PCP Screen Urine Negative (Negative); THC Screen Urine Negative (Negative)
[2023-02-03 22:16] LABS: HCG Qualitative Urine. Negative (Negative)
[2023-02-03] MEDS: sodium chloride 0.9% 1,000 ML 999 ML IV ×2 (22:34→23:44)
[2023-02-03] MEDS: hyDRALAzine 20 mg/mL INJ 1 mL 10 MG IVP (22:35)
[2023-02-03 23:00] VITALS: BP 188/99; PULSE 59; O2SAT 95
[2023-02-03 23:23] LABS: Troponin 5 2HR 9.11 ng/L (0-10)
[2023-02-03 23:41] LABS: Troponin 5 2HR Delta 0.11 ABS# (0-10)
[2023-02-04 00:17] VITALS: BP 223/90; PULSE 64; RESP 17; O2SAT 100
--- NOTE | 2023-02-04 00:18 | ED_ITS ---
HPI - Altered Mental Status General: Chief Complaint: Altered Mental Status Stated Complaint: headache Time Seen by Provider: 02/03/23 20:53 Source: patient Mode of arrival: ambulatory Limitations: no limitations History of Present Illness: Patient presents to the emergency department today accompanied by family for evaluation and treatment of multiple complaints including positional dizziness, swimmy headedness and increased stress. Patient reports that she has been dealing with generalized headaches and for the last few days anytime she stands up or lays back in bed she feels dizziness. She also states that she feels like she has been drugged but does not believe anyone in her family would try and harm her. Patient tells me that she takes her medications as prescribed and does not believe she could have accidentally taken too much. Nursing informed me that patient admitted she has pill bottles so old they do not have labels on them anymore and she just takes something as needed . She has not had nausea or vomiting. She denies diarrhea. She denies any upper respiratory symptoms recently or fevers. She denies chest pain or shortness of breath. She reports significant increased stress within her family for quite a while and is on the verge of tears while talking about stressful intarelational conflict with family. Review of Systems General: Reports: 10 or more systems reviewed and unremarkable except in HPI and below PFSH ED PFSH: Medical History Anxiety and depression Chronic back pain Depressed Dyslipidemia Hypertension Obesity (BMI 35.0-39.9 without comorbidity) Uncontrolled diabetes mellitus Surgical History History of cholecystectomy History of hysterectomy Family History Father Cancer Dementia Lung disease Mother CAD (coronary artery disease) Diabetes Stroke Family/Other Randi Gehrig disease Brother Seizures Stroke Denies family history of Clotting disorder Chronic kidney disease (CKD) Suicide Anesthesia complication Bleeding disorder Social History Smoking and tobacco status: never smoked Alcohol intake: never Substance/Drug Use: former Physical Exam Const: COMMON NORMALS: no acute distress, patient oriented x3, no limitations and alert HENMT: COMMON NORMALS: normocephalic, atraumatic, hearing grossly normal bilaterally, external ears normal, Normal external nose present, moist oral mucous membranes and dentition normal HEAD & SCALP: normocephalic and atraumatic NOSE: Normal external nose present EXTERNAL EAR: Yes external ears normal Eye: COMMON NORMALS: Equal, round and reactive pupils present, EOMs intact bilaterally and conjunctivae normal CONJUNCTIVA: Yes conjunctivae normal PUPIL: Yes Equal, round and reactive pupils present Neck/C-Spine: COMMON NORMALS: full ROM Resp: COMMON NORMALS: normal respiratory effort, No retractions and No use of accessory muscles Cardio: COMMON NORMALS: regular rate RATE: regular rate Back/Pelvis: COMMON NORMALS: no thoracic nor lumbar tenderness and thoraco- lumbar ROM normal Extremity: COMMON NORMALS: full ROM NARRATIVE EXTREMITY EXAM: Patient is independently ambulatory and weightbearing Neuro: COMMON NORMALS: patient oriented x3, CN's II-XII intact bilaterally, moves all extremities, no focal motor deficits and gait normal SENSORIUM/ORIENTATION: Yes alert Psych: COMMON NORMALS: mental status grossly normal, Normal thought process present, cooperative, speech normal and denies hallucinations (History of but none active) SPEECH: Yes normal speech MOOD & AFFECT: Yes depressed mood and Yes tearful THOUGHT PROCESS: Normal thought process present Course Vital Signs: Vital signs: Vital Signs Temperature 98.1 F 02/03/23 19:55 Pulse Rate 59 L 02/03/23 23:00 Respiratory Rate 18 02/03/23 21:49 Blood Pressure 188/99 02/03/23 23:00 Pulse Oximetry 95 02/03/23 23:00 Oxygen Delivery Me thod Room Air 02/03/23 23:00 MDM - Altered Mental Status Medical Decision Making Patient presented to the emergency department today for various, vague symptoms of swimmy headedness. Patient seems relatively noncompliant with her medication. Patient was found to be hypertensive here in the ER and was treated with medication. Blood pressure did begin to come down however, as patient had low sodium, she was receiving fluids and blood pressure did not improve significantly. However, patient indicated that the headache she was complaining of had fully resolved. Patient told staff that since her headache was gone she wanted to leave. Patient has no chest pain and had a negative cardiac work-up. CT examination showed no intracranial concerns for her symptoms. I explained to the patient she has several things of concern including her blood pressure, elevated blood sugar readings, decreased sodium, and decreased GFR. Explained that we were in the process of trying to address these but, patient wanted to leave. Patient needs to keep close record of her blood pressure readings and discuss them with her primary care doctor. Explained her that her blood sugars are extremely high but, I do not see any acute concerns for a ketoacidotic state today. Discussed her low sodium and discussed altering her eating habits for the next few days. Discussed with her the importance of having follow-up with her primary care doctor to address these findings as they can be quite significant. Patient verbalized understanding and agreement to treatment plan. Differential Diagnosis Likely altered mental status, delirium, hypoglycemia and hyponatremia Lab Data 02/03/23 21:09 02/03/23 21:[address] 02/03/23 20:55 IMPRESSION: 1. No acute abnormality of the brain. 2. Stable small amount of fluid in the left mastoid air cells. 3. Incidental/nonacute findings are listed in the report. Laboratory Results WBC 5.7 10^3/uL (4.0-10.0) 02/03/23 21: RBC 4.77 10^6/uL (4.1-5.3) 02/03/23 21:09 Hgb 14.0 g/dL (11.5-15.3) 02/03/23 21: Hct 41.8 % (37.0-47.0) 02/03/23 21: MCV 87.6 fl (81-99) 02/03/23 21: MCH 29.4 pg (28.0-34.0) 02/03/23 21: MCHC 33.5 g/dL (30.0-36.0) 02/03/23 21:09 RDW 12.0 % (12.1-15.1) L 02/03/23 21: Plt Count 147 10^3/cmm (130-400) 02/03/23 21: MPV 11.5 fL (7.4-10.4) H 02/03/23 21:09 Neut % (Auto) 56.5 % 02/03/23 21: Lymph % (Auto) 36.1 % 02/03/23 21: [place] % (Auto) 4.2 % 02/03/23 21:09 Eos % (Auto) 1.9 % 02/03/23 21:09 Baso % (Auto) 1.1 % 02/03/23 21:09 Neut # (Auto) 3.19 10^3/uL (1.8-7.7) 02/03/23 21:09 Lymph # (Auto) 2.0 10^3/uL (0.8-4.8) 02/03/23 21:09 Sullivan # (Auto) 0.2 10^3/uL (0.2-0.9) 02/03/23 21:09 Eos # (Auto) 0.1 10^3/uL (0.0-0.8) 02/03/23 21:09 Baso # (Auto) 0.1 10^3/uL (0.0-0.1) 02/03/23 21:09 Nucleated RBC % (auto) 0 % 02/03/23 21:09 Nucleated RBCs # 0.0 /100WBC 02/03/23 21:09 ESR 8 mm/hr (0-15) 02/03/23 21:09 Sodium 128 mmol/L (136-145) L 02/03/23 21:09 Potassium 4.2 mmol/L (3.5-5.1) 02/03/23 21:09 Chloride 93 mmol/L (98-107) L 02/03/23 21:09 Carbon Dioxide 26 mmol/L (22-29) 02/03/23 21:09 Anion Gap 13.2 (5-19) 02/03/23 21:09 BUN 14 mg/dL (6-20) 02/03/23 21:09 Creatinine 0.8 mg/dL (0.5-0.9) 02/03/23 21:09 GFR Calculation 73.9 mL/min (90-130) L 02/03/23 21:09 Glucose 483 mg/dL (65-115) H 02/03/23 21:09 Calculated Osmolality 288 mOsm/kg (285-295) 02/03/23 21:09 Calcium 8.5 mg/dL (8.5-10.5) 02/03/23 21:09 Total Bilirubin 0.2 mg/dL (0.15-1.2) 02/03/23 21:09 AST 17 U/L (0-32) 02/03/23 21:09 ALT 11 U/L (0-33) 02/03/23 21:09 Alkaline Phosphatase 101 U/L (35-105) 02/03/23 21:09 Troponin T Baseline 9 ng/L (0-10) 02/03/23 21:09 Troponin T 120 Minute 9.11 ng/L (0-10) 02/03/23 22:59 Delta Troponin T 0.11 ABS# (0-10) 02/03/23 22:59 C-Reactive Protein 13.7 mg/L (0.0-4.9) H 02/03/23 21:09 Total Protein 6.2 g/dL (6.6-8.7) L 02/03/23 21:09 Albumin 3.6 g/dL (3.5-5.2) 02/03/23 21:09 Globulin 2.6 g/dL (1.3-4.6) 02/03/23 21:09 TSH 2.56 uIU/mL (0.27-4.20) 02/03/23 21:09 HCG, Qual Negative (Negative) 02/03/23 20:56 Urine Color Yellow (Yellow) 02/03/23 20:56 Urine Appearance Clear (CLEAR) 02/03/23 20:56 Urine pH 5 (5-7) 02/03/23 20:56 Ur Specific [place] 1.010 (1.005-1.030) 02/03/23 20:56 Urine Protein Neg (Negative) 02/03/23 20:56 Urine Glucose (UA) 4+ (Normal) H 02/03/23 20:56 Urine Ketones Negative (Negative) 02/03/23 20:56 Urine Blood 3+ (Negative) H 02/03/23 20:56 Urine Nitrate Negative (Negative) 02/03/23 20:56 Urine Bilirubin Neg (Negative) 02/03/23 20:56 Urine Urobilinogen Neg mg/dL (Negative) 02/03/23 20:56 Ur Leukocyte Esterase Negative (Negative) 02/03/23 20:56 Urine RBC 5-10 /hpf (0-2) H 02/03/23 20:56 Urine WBC None /hpf (0-5) 02/03/23 20:56 Ur Squamous Epith Cells None /hpf (0-5) 07/24/23 20:56 Amorphous Sediment Not Reportable 02/03/23 20:56 Urine Bacteria Trace /hpf (NONE) 02/03/23 20:56 Urine Opiates Screen Negative ng/mL (Negative) 02/03/23 20:56 Ur Barbiturates Screen Negative ng/mL (Negative) 02/03/23 20:56 Ur Phencyclidine Scrn Negative ng/mL (Negative) 02/03/23 20:56 Ur Amphetamines Screen Negative ng/mL (Negative) 02/03/23 20:56 U Benzodiazepines Scrn Negative ng/mL (Negative) 02/03/23 20:56 Urine Cocaine Screen Negative ng/mL (Negative) 02/03/23 20:56 U Marijuana (THC) Screen Negative ng/mL (Negative) 02/03/23 20:56 Discharge Plan Discharge Patient Disposition: Home Clinical Impression: Stress at home, Dizziness Condition: Stable Prescriptions: No Action nitroglycerin [Nitrostat] 0.4 mg tablet, sublingual 0.4 mg sublingual Q5M PRN (Reason: Chest Pain) Rx Instructions: do not exceed 3 doses per episode ibuprofen 200 mg Tablet 400 mg PO Q6H PRN (Reason: Pain) Apple Cider Vinegar Diet 300-50-200 mg Tablet 1 tab PO DAILY Adult Low Dose Aspirin 81 mg tablet,delayed release (DR/EC) 81 mg PO QAM buspirone 5 mg tablet 5 mg PO BID PRN (Reason: Anxiety) Qty: 60 0RF lisinopril 20 mg Tablet 20 mg PO BIDWMEAL Qty: 60 0RF hydroxyzine HCl 25 mg tablet 25 mg PO TID PRN (Reason: anxiety or panic attacks as needed) Qty: 90 0RF Rx Instructions: May make drowsy Paxil 40 mg Tablet 40 mg PO DAILY PRN (Reason: unknown) Qty: 30 0RF empagliflozin 10 mg tablet 10 mg PO DAILY Qty: 30 0RF Discharge Orders: Discharge ED (Routine); Ordered 02/04/23 Ordered By: Kelly Baron Referrals: Sharda Payne MD [Primary Care Provider] - Discharge Diet: Diabetic Discharge Activity: Increase activity as tolerated Patient Instructions: Hyponatremia (ED), Hypoglycemia in a Person with Diabetes (ED), Altered Mental Status (ED) Activity Restrictions/Additional Instructions: Lab work today revealed no signs of acute infection. There is no cardiac or active intracranial neurological cause found on your examination today for your symptoms. The dizziness you are describing is positional which can often do with blood pressure issues. Can also be due to dehydration. You are found to be extremely dehydrated which is why we provided you fluids. Also, your sodium levels are low. Normally, we would encourage you to increase your salt but, this can also increase your blood pressure. I want you to start monitoring your blood pressure at home. You need to have a follow-up appoint with your primary care doctor to discuss elevated blood pressure readings and, your blood glucose was almost 500 here today. Your lab work does not support concerns for an acute diabetic ketoacidotic state today but, your blood sugars need to be better controlled. Call your primary care first thing in the morning to make a follow- up appointment later this week. Coding Level of Care Code ED Supervisor Stitching Department for [facility]azo
== END 2023-02-04 00:23 | disposition home or self-care (01) ==
PROVIDERS: Emergency Provider Physician Assistant; PCP Family Medicine
DX: R42 Dizziness and giddiness (principal); Z63.8 Other specified problems related to primary support group; Z79.82 Long term (current) use of aspirin
CPT/HCPCS: 36415; 70450; 80053; 80306; 81001; 81025; 84443; 84484; 85025; 85651; 86140; 93005; 96361; 96374; 99285; J0360; J7030